=== PATIENT | female | born 1945 | race Caucasian/White ===

== ENCOUNTER → 2023-10-11 10:28 | Outpatient (REF) | payer OTHER, SELFPAY | LOC: RAD 10:28 | PROVIDERS: ATTENDING PHYSICIAN Physician Assistant; FAMILY PHYSICIAN Nurse Practitioner Family | DX: I74.8 Embolism and thrombosis of other arteries (principal) | CPT/HCPCS: 93922; 93925 ==

== ENCOUNTER → 2024-01-23 10:37 | Outpatient (REF) | payer OTHER, SELFPAY | LOC: WDC 10:37 | PROVIDERS: ATTENDING PHYSICIAN Nurse Practitioner Family | DX: Z12.31 Encounter for screening mammogram for malignant neoplasm of breast (principal) | CPT/HCPCS: 77063; 77067 ==

== ENCOUNTER 2024-05-28 06:16 | Day surgery (SDC) | payer OTHER, SELFPAY ==
[2024-05-28 07:42] LABS: Glucose - Point of Care 115 mg/dl (70-99)
== END 2024-05-28 09:18 | disposition home or self-care (01) ==
LOC: GI 06:16
PROVIDERS: ATTENDING PHYSICIAN Internal Medicine Gastroenterology; FAMILY PHYSICIAN Nurse Practitioner Family
DX: Z12.11 Encounter for screening for malignant neoplasm of colon (principal); D12.2 Benign neoplasm of ascending colon; K63.5 Polyp of colon; K63.89 Other specified diseases of intestine; Z86.0101 Personal history of adenomatous and serrated colon polyps
CPT/HCPCS: 45385; 45380; 88305; 82962

== ENCOUNTER → 2024-07-06 09:03 | Outpatient (REF) | payer OTHER, SELFPAY | LOC: RAD 09:03 | PROVIDERS: ATTENDING PHYSICIAN Surgery Vascular Surgery; FAMILY PHYSICIAN Nurse Practitioner Family | DX: I74.8 Embolism and thrombosis of other arteries (principal) | CPT/HCPCS: 71250; 74176 ==

== ENCOUNTER → 2024-07-14 09:06 | Outpatient (REF) | payer OTHER, SELFPAY | LOC: RAD 09:06 | PROVIDERS: ATTENDING PHYSICIAN Surgery Vascular Surgery; FAMILY PHYSICIAN Nurse Practitioner Family | DX: I74.8 Embolism and thrombosis of other arteries (principal) | CPT/HCPCS: 93922; 93925 ==

== ENCOUNTER 2024-08-28 10:06 | Emergency (ER) | payer MEDICARE, SELFPAY ==
[2024-08-28 10:25] VITALS: BP 101/74
--- NOTE | 2024-08-28 10:31 | ED.GENMED ---
ED Provider Triage
<Quique Jung PA-C - Last Filed: 08/28/24 10:31>
-
Patient seen by provider in Triage?: Seen in Triage
Attestation: A medical screening examination has been initiated by a qualified medical provider. Based on the assessment performed at this time, it has been determined that an emergent medical condition may exist and the patient has been informed
that further medical evaluation and possible additional diagnostic testing may be needed.
HPI: 78-year-old female presents for evaluation after a syncopal event that occurred at a store today. Currently denies any pain, no chest pain or shortness of breath. No palpitations associated with this episode
GENERAL: Alert , in no apparent distress
EYE: No visual abnormalities.
NECK: Trachea midline
ENT: No visible abnormalities.
LUNGS: No acute respiratory distress
NEUROLOGICAL: Alert and oriented
SKIN: Skin intact. No visible changes.
MUSCULOSKELETAL: Moving extremities normally
PSYCH: Normal and appropriate interaction.
This is a medical evaluation conducted in person to initiate diagnostic evaluation and provide initial therapeutics. Please see further documentation by the treating clinician.
History of Present Illness
<Quique Jung PA-C - Last Filed: 08/28/24 10:31>
General
Chief Complaint: Fainting/Passed Out
Time Seen by Provider: 08/28/24 13:46
<Yadira Rogers NP - Last Filed: 08/28/24 18:21>
General
Source: patient
Exam Limitations: none
Nursing documentation reviewed up to this point in time: agreed with
History of Present Illness
History of Present Illness:
78 yo female w h/o HTN, HLD, IDDM, here for syncope. Was standing at counter at computer store speaking with the world renowned chef and restaurant owner when she felt her left leg start to shake, she reached and put her hand on the counter and 'next thing I knew I was on the floor.'
Does not recall falling, she remembers the world renowned chef and restaurant owner shaking her shoulder asking if she is OK. Denies h/a, CP, SOB, abd pain.
States she had a similar episode years ago when her legs 'got shaky' and she fainted.
At this time she has pain in the left calf 'like a charley horse.'
Past History
<Quique Jung PA-C - Last Filed: 08/28/24 10:31>
Past History
ED Past Medical History: Cancer (breast), HTN, Hypercholesterolemia and IDDM
ED Past Surgical History: Orthopedic
Social History
Tobacco: Non-smoker
Alcohol: Occasional
Personal:
Living: alone
Review of Systems
<Yadira Rogers OPTICAL BRIGHTENER MAKER HELPER - Last Filed: 08/28/24 18:21>
Review of Systems
Allergies reviewed?: Yes
All Other Systems: ROS reviewed and negative except as documented in HPI and ROS
Constitutional: Denies fever or fatigue
Respiratory: Denies cough or trouble breathing
Cardiac: Reports syncope; Denies chest pain, diaphoresis or palpitations
ABD/GI: Denies abdominal pain, nausea, vomiting, diarrhea or anorexia
: Denies dysuria, frequency or difficulty voiding
Musculoskeletal: Reports other (Pain left calf); Denies edema
Skin: Reports no symptoms
Neurological: Reports no symptoms
Phy Exam
<Yadira Rogers OPTICAL BRIGHTENER MAKER HELPER - Last Filed: 08/28/24 18:21>
Physical Exam
Physical Exam:
GENERAL: No acute distress. A&Ox3.
CONSTITUTIONAL: Afebrile.
EYES: clear, conjunctivae normal
ENMT: moist mucus membranes
RESPIRATORY: Regular respirations, nonlabored, lungs clear.
CARDIOVASCULAR: Regular rate and rhythm, no murmurs, no rubs.
GI: Soft, nontender, normal BS
MUSCULOSKELETAL: Left calf tenderness, no redness or swelling. Distal neurovascular intact. Moves with ease. Well perfused.
SKIN: Warm, dry, pink
PSYCH: Normal mood and affect. Well kept, interactive and appropriate
NEUROLOGIC: Awake, alert and oriented. No focal neurological deficits
Course
<Quique Jung PA-C - Last Filed: 08/28/24 10:31>
Orders/Labs/Results
Orders:
Orders
08/28/24 10:23
Electrocardiogram (*1) Urgent
Reason for Study: Chest Pain
08/28/24 10:41
CT Head W/o Iv Contrast Urgent
Comment:
Reason For Exam: syncope
08/28/24 10:44
Complete Blood Count/With Diff Urgent
Troponin I Urgent
08/28/24 13:43
Basic Metabolic Panel Urgent
08/28/24 14:27
US Periph Venous LOWER Ext LT Urgent
Comment:
Reason For Exam: calf pain, syncope
08/28/24 15:18
Magnesium Urgent
Potassium Urgent
08/28/24 15:54
Orthostatic VS- Treatment ONCE
Abnormal Lab Results
08/28/24 08/28/24 08/28/24
10:31 10:44 13:43
RBC 4.18 L 10^6/uL
(4.20-5.40)
MCHC 32.4 L g/dL
(33.0-37.0)
MPV 12.2 H fL
(7.4-10.4)
Abs Immat Gran (auto) 0.1 H 10^3/uL
(0-0.05)
Absolute Monos (auto) 0.7 H 10^3/uL
(0.1-0.6)
Immature Gran % 1.2 H %
(0-0.5)
Potassium
Chloride 110 H mmol/L
(98-107)
Carbon Dioxide 17 L mmol/L
(22-30)
BUN 41 H mg/dl
(7-17)
Creatinine 2.1 H mg/dL
(0.6-1.0)
Glucose 123 H mg/dl
(70-99)
POC Glucose 141 H mg/dl
(70-99)
08/28/24
15:18
RBC
MCHC
MPV
Abs Immat Gran (auto)
Absolute Monos (auto)
Immature Gran %
Potassium 5.2 H mmol/L
(3.5-5.1)
Chloride
Carbon Dioxide
BUN
Creatinine
Glucose
POC Glucose
08/28/24 10:44
08/28/24 15:18
Vital Signs
Initial and Last Documented VS:
Initial Vital Signs
Temp Pulse Resp BP Pulse Ox
98.2 F 86 16 101/74 98
08/28/24 10:25 08/28/24 10:25 08/28/24 10:25 08/28/24 10:25 08/28/24 10:25
Last Documented Vital Signs
Temp Pulse Resp BP Pulse Ox
98.2 F 86 16 101/74 98
08/28/24 10:25 08/28/24 10:25 08/28/24 10:25 08/28/24 10:25 08/28/24 10:25
<Yadira Rogers, OPTICAL BRIGHTENER MAKER HELPER - Last Filed: 08/28/24 18:21>
Orders/Labs/Results
Orders:
Orders
08/28/24 10:23
Electrocardiogram (*1) Urgent
Reason for Study: Chest Pain
08/28/24 10:41
CT Head W/o Iv Contrast Urgent
Comment:
Reason For Exam: syncope
08/28/24 10:44
Complete Blood Count/With Diff Urgent
Troponin I Urgent
08/28/24 13:43
Basic Metabolic Panel Urgent
08/28/24 14:27
US Periph Venous LOWER Ext LT Urgent
Comment:
Reason For Exam: calf pain, syncope
08/28/24 15:18
Magnesium Urgent
Potassium Urgent
08/28/24 15:54
Orthostatic VS- Treatment ONCE
Abnormal Lab Results
08/28/24 08/28/24 08/28/24
10: 10:44 13:43
RBC 4.18 L 10^6/uL
(4.20-5.40)
MCHC 32.4 L g/dL
(33.0-37.0)
MPV 12.2 H fL
(7.4-10.4)
Abs Immat Gran (auto) 0.1 H 10^3/uL
(0-0.05)
Absolute Monos (auto) 0.7 H 10^3/uL
(0.1-0.6)
Immature Gran % 1.2 H %
(0-0.5)
Potassium
Chloride 110 H mmol/L
(98-107)
Carbon Dioxide 17 L mmol/L
(22-30)
BUN 41 H mg/dl
(7-17)
Creatinine 2.1 H mg/dL
(0.6-1.0)
Glucose 123 H mg/dl
(70-99)
POC Glucose 141 H mg/dl
(70-99)
08/28/24
15:18
RBC
MCHC
MPV
Abs Immat Gran (auto)
Absolute Monos (auto)
Immature Gran %
Potassium 5.2 H mmol/L
(3.5-5.1)
Chloride
Carbon Dioxide
BUN
Creatinine
Glucose
POC Glucose
08/28/24 10:44
08/28/24 15:18
Vital Signs
Initial and Last Documented VS:
Initial Vital Signs
Temp Pulse Resp BP Pulse Ox
98.2 F 86 16 101/74 98
08/28/24 10:25 08/28/24 10:25 08/28/24 10:25 08/28/24 10:25 08/28/24 10:25
Last Documented Vital Signs
Temp Pulse Resp BP Pulse Ox
98.2 F 86 16 101/74 98
08/28/24 10:08/28/24 10:25 08/28/24 10:25 08/28/24 10:08/28/24 10:25
<Yadira Rogers, OPTICAL BRIGHTENER MAKER HELPER - Last Filed: 08/28/24 18:21>
MDM/Problems Addressed
Differential Diagnosis Includes:
Dehydration, vasovagal, hypo/hyperglycemia, cardiac dysrhythmia, orthostatic hypotension
MDM/Problems Addressed:
78 yo female w h/o HTN, HLD, IDDM, here for syncope. Was standing at counter at computer store speaking with the world renowned chef and restaurant owner when she felt her left leg start to shake, she reached and put her hand on the counter and 'next thing I knew I was on the floor.'
Does not recall falling, she remembers the world renowned chef and restaurant owner shaking her shoulder asking if she is OK. Denies h/a, CP, SOB, abd pain.
States she had a similar episode years ago when her legs 'got shaky' and she fainted.
At this time she has pain in the left calf 'like a charley horse.'
CBC normal
CMP: consistent with her CKD
Mg++ normal
EKG: NSR, new RBBB
Troponin WNL
3:30 PM:
Ultrasound radiology report read: IMPRESSION: No evidence of deep venous thrombosis of the left lower extremity.
Nothing worrisome in her workup here today
Pr OOB and ambulating well
BP soft 101/74 but she typically runs around the same
Orthostatic vital signs are positive, her heart rate does not increase but her blood pressure drops. She is asymptomatic.
Will give 1 L of IV fluids for mild dehydration versus orthostatic hypotension
After IV NSS, orthostatics neg
Pt ate meal while here
Stable for discharge
<Yadira Rogers NP - Last Filed: 08/28/24 18:21>
*Critical Care Note
Total Time (30-74mins, 75-104mins- exclusive of procedures): Not Applicable
ED Attending Note
<Quique Jung PA-C - Last Filed: 08/28/24 10:31>
-
Portions of this chart may have been created with voice recognition software.� Occasional wrong word or��sound alike� substitutions may have occurred due to the inherent limitations of voice recognition software.
Discharge Plan
Departure
Patient Disposition: Home (Routine Discharge)
Date of Disposition: 08/28/24
Time of Disposition: 17:18
Patient with high blood pressure during this ER visit?: No
Discharge Problem:
Fainting spell, Orthostatic hypotension, Acute dehydration
Instructions: Orthostatic hypotension, Syncope (Fainting) (DC), Dehydration in adults - ED discharge instructions
Prescriptions:
No Action
alendronate 70 MG tablet
70 mg PO TH
omeprazole 20 MG capsule,delayed release(DR/EC)
20 mg PO HS
cholecalciferol (vitamin D3) 1,000 UNITS tablet
1,000 units PO BID
insulin glargine [Lantus Solostar U-100 Insulin] 300 UNITS/3 ML insulin pen
45 units SC HS
Patient Comments:
patient does not remember her dose
L. gasseri-B. bifidum-B longum [[facility]] 1 EACH capsule
1 cap PO HS
multivitamin with folic acid [Tab-A-Stephany] 1 TABLET tablet
1 tab PO DAILY
dulaglutide [Trulicity] 1.5 MG/0.5 ML pen injector
1.5 mg SC WE
amitriptyline 50 MG tablet
50 mg PO HS Qty: 30 0RF
levofloxacin [Levaquin] 750 MG tablet
750 mg PO Q48H Qty: 3 0RF
Rx Instructions:
Start on 06/24/21
ferrous sulfate [iron] 325 MG tablet
325 mg PO DAILY Qty: 30 0RF
Referrals:
Josephine Brooke CRNP [Family Provider] -
Activity Restrictions/Additional Instructions:
As we discussed, you were dehydrated which may have caused your fainting episode.
You may also have something called orthostatic hypotension, where your blood pressure drops when standing
When you change positions, such as going from laying to standing, or sitting to standing, do so slowly, sit for 30 seconds before getting up
Drink at least 6 eight ounce glasses of water/fluid daily to stay hydrated.
See your doctor in 4-5 days for a recheck.
Interventions
Interventions:
*Risk Screen - Suicide Last Done: 08/28/24 10:25
*Neglect/Abuse Screening Last Done: 08/28/24 10:25
ED- Fall Risk Assessment Last Done: 08/28/24 13:50
*Nursing Disposition Last Done: 08/28/24 18:05
ED- Cardiac Assessment Last Done: 08/28/24 13:50
ED- Neurological Assessment Last Done: 08/28/24 13:50
Discharge Date and Time
Discharge Date/Time: 08/28/24 18:05
Print Language: CZECH
[2024-08-28 10:32] LABS: Glucose - Point of Care 141 mg/dl (70-99)
[2024-08-28 10:58] LABS: % Basophils 0.7 % (0-2); % Eosinophils 3.2 % (0-6); % Immature Granulocytes 1.2 % (0-0.5); % Lymphocytes 22.1 % (20.5-51.1); % Monocytes 7.7 % (1.7-9.3); % Neutrophils 65.1 % (42.2-75.2); Absolute Basophils 0.1 10^3/uL (0-0.2); Absolute Eosinophils 0.3 10^3/uL (0-0.7); Absolute Immature Granulocytes 0.1 10^3/uL (0-0.05); Absolute Monocytes 0.7 10^3/uL (0.1-0.6); Absolute Neutrophils 5.9 10^3/uL (1.4-6.5); Hematocrit 37.3 % (37.0-47.0); Hemoglobin 12.1 g/dL (12.0-16.0); Mean Corp Hgb Conc. 32.4 g/dL (33.0-37.0); Mean Corpuscular Hgb 28.9 pg (27.0-31.0); Mean Corpuscular Volume 89.2 fL (81.0-99.0); Mean Platelet Volume 12.2 fL (7.4-10.4); Nucleated Red Blood Cells % 0 %; Platelet Count 201 10^3/uL (130-400); Red Blood Cell Count 4.18 10^6/uL (4.20-5.40); Red Cell Dist. Width 13.8 % (11.5-14.5); White Blood Cell Count 9.1 10^3/uL (4.8-10.8)
[2024-08-28 11:21] LABS: Troponin I < 0.012 ng/ml
[2024-08-28 14:13] LABS: Blood Urea Nitrogen 41 mg/dl (7-17); Calcium 9.9 mg/dl (8.4-10.2); Carbon Dioxide 17 mmol/L (22-30); Chloride 110 mmol/L (98-107); Glucose 123 mg/dl (70-99); Sodium 138 mmol/L (135-145); eGFR 23.67
[2024-08-28 15:43] LABS: Magnesium 2.3 mg/dl (1.6-2.3); Potassium 5.2 mmol/L (3.5-5.1)
[2024-08-28 16:11] VITALS: BP 131/107; BP 160/70; BP 96/56; PULSE 76; PULSE 80; PULSE 84
[2024-08-28 18:07] VITALS: BP 113/61; BP 141/62; BP 149/77; PULSE 82; PULSE 86; PULSE 90
== END 2024-08-28 18:05 | disposition home or self-care (01) ==
LOC: EMR 10:06
PROVIDERS: Registered Nurse; EMERGENCY PHYSICIAN Emergency Medicine; FAMILY PHYSICIAN Nurse Practitioner Family
DX: R55 Syncope and collapse (principal); E86.0 Dehydration; E78.00 Pure hypercholesterolemia, unspecified; I12.9 Hypertensive chronic kidney disease with stage 1 through stage 4 chronic kidney disease, or unspecified chronic kidney disease; N18.9 Chronic kidney disease, unspecified; M79.662 Pain in left lower leg
CPT/HCPCS: 99284; 70450; 80048; 82962; 83735; 84132; 84484; 85025; 93005; 93971

== ENCOUNTER → 2025-01-26 10:53 | Outpatient (REF) | payer MEDICARE, SELFPAY | LOC: WDC 10:53 | PROVIDERS: ATTENDING PHYSICIAN Nurse Practitioner Family | DX: Z12.31 Encounter for screening mammogram for malignant neoplasm of breast (principal) | CPT/HCPCS: 77063; 77067 ==

== ENCOUNTER → 2025-02-09 09:26 | Outpatient (REF) | payer MEDICARE, SELFPAY | LOC: WDC 09:26 | PROVIDERS: ATTENDING PHYSICIAN Nurse Practitioner Family | DX: R92.8 Other abnormal and inconclusive findings on diagnostic imaging of breast (principal) | CPT/HCPCS: 76642 ==

== ENCOUNTER → 2025-02-12 07:35 | Outpatient (REF) | payer MEDICARE, SELFPAY ==
--- NOTE | 2025-02-12 08:25 | OID.BR.INTR ---
[facility] Breast Navigator - Initial
- -
Date of Contact: 02/12/25
Met with patient. Patient given written information on navigator service available at [facility]. Will follow up as needed per protocol.
== END ==
LOC: WDC 07:35
PROVIDERS: ATTENDING PHYSICIAN Nurse Practitioner Family
DX: N63.22 Unspecified lump in the left breast, upper inner quadrant (principal)
CPT/HCPCS: 19083; 88305; A4648

== ENCOUNTER 2025-02-25 06:48 | Emergency (ER) | payer MEDICARE, SELFPAY ==
[2025-02-25] VITALS (12 sets, daily range): BP systolic 105–141; BP diastolic 40–116; PULSE 86; O2SAT 98; BMI 28.4
--- NOTE | 2025-02-25 06:53 | ED.GENMED ---
History of Present Illness
General
Chief Complaint: Fall
Time Seen by Provider: 02/25/25 06:51
History of Present Illness
History of Present Illness:
PAST MEDICAL HISTORY AND REVIEW OF OLD RECORDS
- The patient has history of IDDM. I reviewed records, the patient had a colonoscopy in 2023.
Note:
CHIEF COMPLAINT(S)
Pain and inability to bear weight on the left leg after a fall.
HISTORY OF PRESENT ILLNESS
The patient is a 79-year-old female with a history of diabetes and diabetic neuropathy, presenting with pain and inability to bear weight on her left leg following a fall. The incident occurred at approximately 5 p.m. the previous day when the
patient experienced neuropathy in her right leg from the ankle down and fell while getting out of a chair. She did not sustain a head injury and was able to return to her apartment using the elevator. She reports persistent leg pain since the fall,
describing it as a 'weird feeling' in her legs. The patient mentioned that she hoped the pain would subside overnight, which prompted her delay in seeking immediate care.
The primary area of discomfort is the left buttock, with significant pain elicited upon pressure in the area. The patient also noted difficulty in raising her leg due to pain localized in the hip region and an inability to bear weight on the leg.
The pain prevents her from walking effectively.
The patient denies any head injury. There is no history of recent head trauma. She had knee replacement surgery in the past, which was mentioned as a relevant surgical history. The patient has been managing pain using Tylenol Extra Strength due to
her diabetes but has not taken any today. She expressed reluctance to use stronger pain medications like Percocet.
PHYSICAL EXAM
- General: Well appearing in no distress
- Head: No craniofacial trauma
- C-spine: No midline c-spine tenderness; normal AROM of C-spine
- Back: Slightly decreased active range of motion of the lumbar spine with left paraspinal lower tenderness
- HEENT: Moist oral mucosa, no blood
- Cardiovascular: No murmurs, normal heart rate, regular rhythm, No chest wall tenderness
- Pulmonary: No respiratory distress, breath sounds are clear and equal
- Abdomen: Soft with no peritoneal signs, no tenderness
- Neurologic: Excellent strength all extremities, no coordination deficits
- Psychiatric: Appropriate mental status, normal insight and judgement
- Extremities: There is no pain with passive range of motion into rotation at the left hip however there is tenderness at the left ischial tuberosity region with decreased active range of motion at the left hip into flexion
- Skin: No rash, no lesions
PLAN
1. Order CT of the affected area to evaluate for any fractures or significant injuries.
2. Conduct blood work to assess the patients overall health status.
3. Administer Tylenol Extra Strength for pain relief, as the patient prefers to avoid opioids.
4. Evaluate the patients ability to bear weight and consider possible need for further interventions based on x-ray and blood work results.
DIFFERENTIAL DIAGNOSIS
The Differential Diagnosis includes, in no particular order and is not limited to:
1. Hip fracture
2. Hip dislocation
3. Muscle strain or sprain
4. Soft tissue injury
5. Sciatica
6. Peripheral neuropathy exacerbation
7. Diabetic amyotrophy
8. Trochanteric bursitis
9. Pelvic fracture
10. Osteoarthritis exacerbation
RADIOLOGY
- CT imaging obtained which shows pubic rami fracture on the left side. Of note the patient denies striking her head.
LABS
- White count 12.3, hemoglobin 1.2, bicarb 20, creatinine 1.8�I reviewed old records and her creatinine at baseline is between 1.6 and 2.1.
UPDATE
-SUMMARY OF ENCOUNTER
The patient, a 79-year-old female with a history of diabetes and diabetic neuropathy, presented to the emergency department due to pain and inability to bear weight on her left leg following a fall. The patient described persistent pain in the left
buttock and hip region, which hindered her ability to walk. X-rays revealed a fracture on the left side of the pelvic ring. An old L3 vertebral fracture was also noted. Given the patients inability to bear weight and her pain, coordination with case
management for rehab placement is ongoing.
MANAGEMENT OF THE PATIENTS CARE WAS DISCUSSED WITH
Coordination is ongoing with case management regarding plans for rehab placement. PT OT saw in the ER and is recommending rehab placement.
PLAN
Await case management decisions regarding rehab placement for comprehensive rehabilitation given the patients left pelvic fracture and inability to bear weight effectively.
INDEPENDENT REVIEW OF LABS AND INTERPRETATION OF TESTS
My independent review of the pelvis CT scan indicates a fracture on the left side of the pelvic ring. An L3 vertebral fracture was also noted, which is suggested to be an old fracture as she already knew about it
PATIENT EDUCATION AND COUNSELING
The patient was informed about the left pelvic ring fracture and the old L3 fracture. Discussed the need for rehabilitation to assist in recovery and improve mobility.
MEDICAL DECISION MAKING
- Number and Complexity of Problems Addressed: Chronic conditions affecting care include diabetes and diabetic neuropathy. The Differential Diagnosis includes hip fracture, hip dislocation, muscle strain or sprain, soft tissue injury, sciatica,
peripheral neuropathy exacerbation, diabetic amyotrophy, trochanteric bursitis, pelvic fracture, and osteoarthritis exacerbation.
- Data:
Category 1: Radiology results include a CT scan showing a left pelvic ring fracture and an old L3 vertebral fracture.
Category 3: Discussion of management with case management for the patients placement into a rehabilitation program.
DIAGNOSIS
- Pelvic ring fracture, left side (S32.89XA)
- Old compression fracture of lumbar spine (M48.56XA)
Past History
Past History
ED Past Medical History: Cancer (breast), HTN, Hypercholesterolemia and IDDM
ED Past Surgical History: Orthopedic
Social History
Tobacco: Non-smoker
Alcohol: Occasional
Personal:
Living: alone
Phy Exam
Physical Exam
Physical Exam:
See HPI
Course
Orders/Labs/Results
Orders:
Orders
02/25/25 07:08
CT Lumbar Spine W/o Iv Contras Urgent
Comment:
Reason For Exam: fall L buttock low back pain
CT Pelvis W/o Iv Contrast Urgent
Comment:
Reason For Exam: fall L buttock / low back pain
Acetaminophen [Tylenol] 1,000 mg PO NOW STA
02/25/25 07:29
Basic Metabolic Panel Urgent
Complete Blood Count/With Diff Urgent
02/25/25 08:04
Case Management Consult ONCE
Case Management Consult: Discharge Planning
Physical Therapy Consult [Pt Eval And Treat] Urgent
Activity Level: Ambulate
02/25/25 08:28
Occupational Therapy Consult [Ot Eval And Treat] Urgent
Abnormal Lab Results
02/25/25
07:29
WBC 12.3 H 10^3/uL
(4.8-10.8)
RBC 3.86 L 10^6/uL
(4.20-5.40)
Hgb 11.2 L g/dL
(12.0-16.0)
Hct 33.6 L %
(37.0-47.0)
RDW 14.7 H %
(11.5-14.5)
MPV 12.0 H fL
(7.4-10.4)
Abs Immat Gran (auto) 0.1 H 10^3/uL
(0-0.05)
Absolute Neuts (auto) 9.0 H 10^3/uL
(1.4-6.5)
Absolute Monos (auto) 1.2 H 10^3/uL
(0.1-0.6)
Immature Gran % 0.6 H %
(0-0.5)
Lymphocytes % 15.0 L %
(20.5-51.1)
Monocytes % 9.4 H %
(1.7-9.3)
Chloride 113 H mmol/L
(98-107)
Carbon Dioxide 20 L mmol/L
(22-30)
BUN 27 H mg/dl
(7-17)
Creatinine 1.8 H mg/dL
(0.6-1.0)
Glucose 124 H mg/dl
(70-99)
02/25/25 07:29
02/25/25 07:29
Vital Signs
Initial and Last Documented VS:
Initial Vital Signs
Temp Pulse Resp BP Pulse Ox
36.9 C 89 16 114/74 95
02/25/25 06:55 02/25/25 06:55 02/25/25 06:55 02/25/25 06:55 02/25/25 06:55
Last Documented Vital Signs
Temp Pulse Resp BP Pulse Ox
36.9 C 89 16 105/48 94
02/25/25 06:55 02/25/25 06:55 02/25/25 06:55 02/25/25 10:01 02/25/25 10:02
*Pulse Oximetry
Patient hypoxic: no
*Critical Care Note
Total Time (30-74mins, 75-104mins- exclusive of procedures): Not Applicable
ED Attending Note
-
Portions of this chart may have been created with voice recognition software.� Occasional wrong word or��sound alike� substitutions may have occurred due to the inherent limitations of voice recognition software.
Discharge Plan
Departure
Patient with high blood pressure during this ER visit?: Yes
Instructions: Clavicle fracture
Prescriptions:
No Action
alendronate 70 MG tablet
70 mg PO TH
omeprazole 20 MG capsule,delayed release(DR/EC)
20 mg PO HS
cholecalciferol (vitamin D3) 1,000 UNITS tablet
1,000 units PO BID
insulin glargine [Lantus Solostar U-100 Insulin] 300 UNITS/3 ML insulin pen
45 units SC HS
Patient Comments:
patient does not remember her dose
Jorge Salguero bifidum-B longum [[facility]] 1 EACH capsule
1 cap PO HS
multivitamin with folic acid [Tab-A-Stephany] 1 TABLET tablet
1 tab PO DAILY
dulaglutide [Trulicity] 1.5 MG/0.5 ML pen injector
1.5 mg SC WE
amitriptyline 50 MG tablet
50 mg PO HS Qty: 30 0RF
levofloxacin [Levaquin] 750 MG tablet
750 mg PO Q48H Qty: 3 0RF
Rx Instructions:
Start on 06/24/21
ferrous sulfate [iron] 325 MG tablet
325 mg PO DAILY Qty: 30 0RF
Referrals:
Josephine Brooke CRNP [Family Provider, Family Practice]
Interventions
Interventions:
*Risk Screen - Suicide Last Done: 02/25/25 07:03
*General Assessment Last Done: 02/25/25 07:01
*Neglect/Abuse Screening Last Done: 02/25/25 07:03
*ED- Fall Risk Assessment Last Done: 02/25/25 07:04
*ED COVID-19 Vaccine History Last Done: 02/25/25 07:04
ED-Musculoskeletal Assessment Last Done: 02/25/25 07:03
ED- Neurological Assessment Last Done: 02/25/25 07:02
ED-Skin Assessment Last Done: 02/25/25 07:04
Discharge Date and Time
Print Language: KOSOVAN
[2025-02-25] MEDS: TYLENOL 1000 MG PO (07:27)
[2025-02-25 07:44] LABS: Hematocrit 33.6 % (37.0-47.0); Hemoglobin 11.2 g/dL (12.0-16.0); Mean Corp Hgb Conc. 33.3 g/dL (33.0-37.0); Mean Corpuscular Volume 87.0 fL (81.0-99.0); Nucleated Red Blood Cells % 0 %; Platelet Count 215 10^3/uL (130-400); Red Cell Dist. Width 14.7 % (11.5-14.5)
[2025-02-25 07:55] LABS: Blood Urea Nitrogen 27 mg/dl (7-17); Calcium 9.3 mg/dl (8.4-10.2); Carbon Dioxide 20 mmol/L (22-30); Chloride 113 mmol/L (98-107); Estimated Creatinine Clearance 24 ml/min; Glucose 124 mg/dl (70-99); Potassium 4.7 mmol/L (3.5-5.1); Sodium 141 mmol/L (135-145); eGFR 28.31
--- NOTE | 2025-02-25 08:43 | CM ---
Addendum entered by Josephine Akbar 02/25/25 17:50:
Still have not received auth. Pt and RN aware. Per Kim at [facility] pt came come up until 9pm tonwade if auth received.
Report number [phone], fax [phone].
Addendum entered by Josephine Akbar 02/25/25 15:18:
[facility] not have any open beds, accepted to [facility] and pt agreeable. Auth submitted to [facility], awaiting approval. Pt, MD and RN updated.
Original Note:
Consult received, de [place] reviewed and met with pt bedside in ED.
Pt states unable to walk due to pain, informed her PT will be seeing her and will await their recommendations.
No hx SNF, agreeable to [facility] and [facility] referrals if recommended by PT. Also requested OT eval.
--- NOTE | 2025-02-25 09:02 | CM ---
Received CM consult, met with pt bedside in ED. Pt states he has been living on the [address] in [place] and wants to get back there. Declined snf or any other assistance. Pt given $11.00 from [employer], I walked him out to the [facility] stop,
instructed him to take it to [place] [address] and he could get the train to [place]. He verbalized understanding.
[2025-02-25 12:03] LABS: Glucose - Point of Care 143 mg/dl (70-99)
[2025-02-25 18:58] LABS: Glucose - Point of Care 114 mg/dl (70-99)
[2025-02-25 22:21] LABS: Glucose - Point of Care 147 mg/dl (70-99)
[2025-02-25] MEDS: LANTUS 0.16 UNITS SC (22:54)
[2025-02-26 07:53] VITALS: BP 112/88
--- NOTE | 2025-02-26 08:57 | CM ---
Addendum entered by Brandie Connolly 02/26/25 11:13:
Ambulance cotton picker operator scheduled for 1215; Spoke w/ Richy @ the facility via phone; Spoke w/ patient's son via phone
Addendum entered by Brandie Connolly 02/26/25 10:02:
Ambulance requested for transport; facility can accept anytime today
[facility]
Report # [phone]

Original Note:
Authorization for SNF @ [facility] approved; start date 02/25/25; next review 03/01/2025; assigned director of casework department, Celine Hamm, #[phone]
Authorization # [id number]
Plan: Discharge to [facility] today
[2025-02-26] MEDS: ROXICODONE 5 MG PO (09:23)
--- NOTE | 2025-02-26 12:36 | EDRN ---
Report called to OLU Russell at [facility]. Report given to [facility] ambulance.
== END 2025-02-26 12:35 ==
LOC: EMR 06:48
PROVIDERS: EMERGENCY PHYSICIAN Emergency Medicine; FAMILY PHYSICIAN Nurse Practitioner Family
DX: S32.592A Other specified fracture of left pubis, initial encounter for closed fracture (principal); M48.56XA Collapsed vertebra, not elsewhere classified, lumbar region, initial encounter for fracture; W19.XXXA Unspecified fall, initial encounter; E11.40 Type 2 diabetes mellitus with diabetic neuropathy, unspecified; Z79.4 Long term (current) use of insulin; E78.00 Pure hypercholesterolemia, unspecified; I10 Essential (primary) hypertension; Z96.659 Presence of unspecified artificial knee joint
CPT/HCPCS: 96372; 99284; 72131; 72192; 80048; 82962; 85025